=== PATIENT | male | born 1990 | race Caucasian/White ===

== ENCOUNTER 2024-02-09 21:43 | Emergency (ER) | payer OTHER, SELFPAY ==
[2024-02-09 21:53] VITALS: BP 189/127; PULSE 100; TEMP 37.2; O2SAT 98; BMI 35.2
[2024-02-09 22:19] VITALS: BP 152/112
[2024-02-09] MEDS: 0.9 % SODIUM CHLORIDE 1,000 ML 999 ML IV (23:04)
[2024-02-09] MEDS: KETOROLAC TROMETHAMINE 30 MG/ML VIAL IVP (23:05)
[2024-02-09] MEDS: DICYCLOMINE HCL 20 MG/2 ML VIAL IM (23:05)
[2024-02-09] MEDS: ONDANSETRON PF 4 MG/2 ML VIAL IV (23:05)
--- NOTE | 2024-02-09 23:05 | ED.ABDPAIN1 ---
HPI - Abdominal Pain General Chief Complaint: Abdominal Pain Stated Complaint: ABDOMINAL PAIN Time Seen by Provider: 02/09/24 22:04 Source: patient Mode of arrival: walk-in Limitations: no limitations History of Present Illness HPI narrative: 33-year-old male to the emergency department with chief complaint of right lower quadrant abdominal pain. Patient reports his symptoms started over the last day. He has had fever, chills, diarrhea, nausea and vomiting. His had similaar symptoms and was diagnosed with Yersenia enterocolitis. Related Data Home Medications ?Medication ?Instructions ?Recorded ?Confirmed losartan 25 mg tablet mg 02/09/24 metoprolol tartrate 25 mg tablet mg 02/09/24 Previous Rx's ?Medication ?Instructions ?Recorded ciprofloxacin HCl 500 mg tablet 500 mg PO BID 7 days #14 tabs 02/10/24 dicyclomine 10 mg capsule 10 mg PO QID PRN abdominal pain 02/10/24 #12 caps ondansetron 4 mg disintegrating 4 mg PO Q8H PRN nausea and 02/10/24 tablet vomiting 4 days #16 tabs Allergies Allergy/AdvReac Type Severity Reaction Status Date / Time No Known Drug Allergies Allergy Verified 02/09/24 21:55 Review of Systems ROS Status of ROS 10 or more systems reviewed and unremarkable except as noted in history and below Exam Narrative Exam Narrative: VITALS: I have reviewed the triage vital signs. GENERAL: Well developed, well appearing adult in no acute distress. NEURO: Alert and oriented. Moves all extremities. Face is symmetric and expressive. EYES: PERRL. No scleral icterus or conjunctival injection. No discharge. HENT: Normocephalic, atraumatic. Hearing is grossly intact. Nares grossly patent and without discharge. Mucous membranes moist. NECK: No JVD. Patient moves neck without restriction. CARDIO: Rhythm regular. Normal rate. No murmur, rub, or gallop. Pulses equal bilaterally in the upper and lower extremity. No lower extremity edema. PULM: Lungs clear to auscultation in all miranda. No wheezes, rales, or rhonchi. No conversational dyspnea. No splinting, stridor, or accessory muscle use. GI/: Abdomen is soft. Mild right lower quadrant tenderness. Normoactive bowel sounds. EXTREMITIES: Symmetric muscle bulk. No joint swelling. No clubbing, cyanosis, or deformity. SKIN: Warm and dry. Normal turgor. No rash or lesions appreciated. PSYCH: Mood, affect, and interaction is appropriate to the setting. Constitutional Vital Signs, click to edit/add: Last Vital Signs Temp 99.0 F 02/09/24 21:53 Pulse 100 H 02/09/24 21:53 Resp 16 02/09/24 21:53 BP 146/100 H 02/10/24 00:03 Pulse Ox 98 02/09/24 21:53 O2 Del Method Room Air 02/09/24 21:53 Course Vital Signs Vital signs: Vital Signs Temperature 99.0 F 02/09/24 21:53 Pulse Rate 100 H 02/09/24 21:53 Respiratory Rate 16 02/09/24 21:53 Blood Pressure 189/127 H 02/09/24 21:53 Pulse Oximetry 98 02/09/24 21:53 Oxygen Delivery Method Room Air 02/09/24 21:53 Temperature 99.0 F 02/09/24 21:53 Pulse Rate 100 H 02/09/24 21:53 Respiratory Rate 16 02/09/24 21:53 Blood Pressure 146/100 H 02/10/24 00:03 Pulse Oximetry 98 02/09/24 21:53 Oxygen Delivery Method Room Air 02/09/24 21:53 MDM - Abdominal Pain MDM Narrative Medical decision making narrative: 33-year-old male with right lower quadrant pain. Vital stable, the patient is afebrile. Mild tenderness on exam. No peritoneal signs. has illness that can cause pseudoappendicitis, we'll work him up with CT scan and labs however. Pain meds were ordered. Patient agrees with this plan. Lab work is unremarkable. CT scan without acute findings. Patient is reexamined. He remains comfortable. His abdomen remains benign. Vitals remained stable. He is appropriate for discharge home. Given the symptom onset similar to his 's course we'll treat him with Cipro as well. He'll follow up with PCP. Return precautions were discussed. All questions were answered. The patient was discharged home. Medical Records Attestation: I reviewed the patient's medical records. Lab Data Attestation: I reviewed the patient's lab results. Labs: Lab Results 02/09/24 Range/Units 23:00 WBC 9.1 (4.0-11.0) 10^3/uL RBC 5.03 (4.70-6.10) 10^6/uL Hgb 15.9 (14.0-18.0) g/dL Hct 45.2 (42.0-54.0) % MCV 89.9 (80.0-94.0) fL MCH 31.6 (25.9-34.0) pg MCHC 35.2 (29.9-35.2) g/dL RDW 13.6 (11.0-15.0) % Plt Count 182 (150-450) 10^3/uL MPV 10.4 (9.5-13.5) fL Neut % (Auto) 72.0 (43.0-75.0) % Lymph % (Auto) 20.7 (20.5-60.0) % [place] % (Auto) 6.2 (1.7-12.0) % Eos % (Auto) 0.5 L (0.9-7.0) % Baso % (Auto) 0.4 (0.2-2.0) % Neut # (Auto) 6.6 H (1.4-6.5) 10^3/uL Lymph # (Auto) 1.9 (1.2-3.8) 10^3/uL [place] # (Auto) 0.6 (0.3-0.8) 10^3/uL Eos # (Auto) 0.1 (0.0-0.7) 10^3/uL Baso # (Auto) 0.0 (0.0-0.1) 10^3/uL Abs Immat Gran (auto) 0.02 (0.00-0.03) 10^3/uL Imm/Tot Granulo (auto) 0.2 (0.0-0.5) % Sodium 139 (136-145) mmol/L Potassium 3.4 L (3.5-5.1) mmol/L Chloride 101 (98-107) mmol/L Carbon Dioxide 25.0 (21.0-32.0) mmol/L Anion Gap 16.4 BUN 14.0 (7.0-18.0) mg/dL Creatinine 0.97 (0.70-1.30) mg/dL Est GFR ( Amer) >60 (>=60) Est GFR (Non-Af Amer) >60 (>=60) BUN/Creatinine Ratio 14.4 Glucose 106 (74-106) mg/dL Calcium 9.4 (8.5-10.1) mg/dL Total Bilirubin 1.0 (0.2-1.0) mg/dL AST 32 (15-37) U/L ALT 57 (16-63) U/L Alkaline Phosphatase 50 (46-116) U/L Total Protein 8.2 (6.4-8.2) g/dL Albumin 4.1 (3.4-5.0) g/dL Globulin 4.1 g/dL Albumin/Globulin Ratio 1.0 Lipase 29.0 (16.0-77.0) U/L Imaging Data CT scan - abdomen: Radiologist's impression: ITS Impressions Abdomen/Pelvis CT 02/10/24 00:00 IMPRESSION: 1. No acute findings in the abdomen or pelvis. 2. Normal appendix. No specific cause of right lower quadrant pain is seen. 3. Hepatic steatosis. 4. Urachal diverticulum, unchanged. Electronically authenticated by: BONG MOORE Date: 02/10/2024 01:07 Discharge Plan Discharge Stand Alone Forms: Portal Instructions Chief Complaint: Abdominal Pain Clinical Impression: Abdominal pain Patient Disposition: Home, Self-Care Time of Disposition Decision: 01:22 Condition: Good Mode of Transportation: Private Vehicle Prescriptions / Home Meds: New ondansetron 4 mg tablet,disintegrating 4 mg PO Q8H PRN (Reason: nausea and vomiting) 4 Days Qty: 16 0RF dicyclomine 10 mg capsule 10 mg PO QID PRN (Reason: abdominal pain) Qty: 12 0RF ciprofloxacin HCl 500 mg tablet 500 mg PO BID 7 Days Qty: 14 0RF No Action losartan 25 mg tablet metoprolol tartrate 25 mg tablet Print Language: Urdu Instructions: Abdominal Pain (ED) Referrals: Vance Edwards MD [Primary Care Provider] - 1 week
[2024-02-09 23:06] LABS: Basophils Percent Auto 0.4 % (0.2-2.0); Eosinophils Absolute Auto 0.1 10^3/uL (0.0-0.7); Eosinophils Percent Auto 0.5 % (0.9-7.0); Hematocrit 45.2 % (42.0-54.0); Hemoglobin 15.9 g/dL (14.0-18.0); Immature Granulocytes Abs Auto 0.02 10^3/uL (0.00-0.03); Immature Granulocytes Pct Auto 0.2 % (0.0-0.5); Lymphocytes Absolute Auto 1.9 10^3/uL (1.2-3.8); Lymphocytes Percent Auto 20.7 % (20.5-60.0); Mean Corpuscular HGB Conc 35.2 g/dL (29.9-35.2); Mean Corpuscular Hemoglobin 31.6 pg (25.9-34.0); Mean Corpuscular Volume 89.9 fL (80.0-94.0); Mean Platelet Volume 10.4 fL (9.5-13.5); Monocytes Absolute Auto 0.6 10^3/uL (0.3-0.8); Monocytes Percent Auto 6.2 % (1.7-12.0); Neutrophils Absolute Auto 6.6 10^3/uL (1.4-6.5); Platelet Count 182 10^3/uL (150-450); Red Blood Count 5.03 10^6/uL (4.70-6.10); Red Cell Distribution Width 13.6 % (11.0-15.0); White Blood Count 9.1 10^3/uL (4.0-11.0)
[2024-02-09 23:29] LABS: Alanine Aminotransferase 57 U/L (16-63); Albumin Level 4.1 g/dL (3.4-5.0); Alkaline Phosphatase 50 U/L (46-116); Anion Gap 16.4; Aspartate Amino Transferase 32 U/L (15-37); BUN Creatinine Ratio 14.4; Calcium 9.4 mg/dL (8.5-10.1); Chloride 101 mmol/L (98-107); Estimated GFR (African America >60 (>=60); Estimated GFR (Non-African Ame >60 (>=60); Globulin 4.1 g/dL; Glucose 106 mg/dL (74-106); Potassium 3.4 mmol/L (3.5-5.1); Sodium 139 mmol/L (136-145); Total Protein 8.2 g/dL (6.4-8.2)
--- NOTE | 2024-02-10 | CT_ITS ---
The [address] [address] Patient Name: MERCEDES CARRANZA MRN: [id number] date: 1990 Sex: M Assigned Patient Location: ER Current Patient Location: ER Accession/Order Number: [id number] Exam Date: 02/10/2024 00:05 Report Date: 02/10/2024 01:07 At the request of: PERRY MICHAUD Procedure: CT abdomen pelvis w con EXAM: CT abdomen pelvis w con HISTORY: Acute RLQ pain with vomiting. COMPARISON: CT abdomen pelvis, 04/22/2022. TECHNIQUE: IV contrast enhanced CT imaging the abdomen and pelvis was performed using 100 mL of Omnipaque 300 intravenous contrast. Sagittal and coronal reconstructions are provided. Dose reduction techniques were achieved by using automated exposure control and/or adjustment of mA and/or kV according to patient size and/or use of iterative reconstruction technique. FINDINGS: CT ABDOMEN: The lung bases are clear. Imaged heart is unremarkable. There is diffuse hepatic steatosis with mild fatty sparing around the gallbladder. The gallbladder, pancreas, spleen, adrenal glands, kidneys, aorta, IVC, stomach and small bowel appear unremarkable. CT PELVIS: The appendix, pelvic small bowel loops, colon, prostate and urinary bladder are unremarkable. There is a 1.4 cm urachal diverticulum on image 70 of series 6, unchanged. No inflammatory fat stranding, free fluid, loculated fluid or free air is seen in the abdomen or pelvis. No acute osseous abnormality or suspicious bony lesion is seen. CT/CT abdomen pelvis w con IMPRESSION: 1. No acute findings in the abdomen or pelvis. 2. Normal appendix. No specific cause of right lower quadrant pain is seen. 3. Hepatic steatosis. 4. Urachal diverticulum, unchanged. Electronically authenticated by: BONG MOORE Date: 02/10/2024 01:07
[2024-02-10 00:03] VITALS: BP 146/100
[2024-02-10 01:36] VITALS: BP 138/94; PULSE 89; O2SAT 100
== END 2024-02-10 01:45 | disposition home or self-care (01) ==
PROVIDERS: Emergency Provider Student in an Organized Health Care Education/Training Program; PCP Family Medicine
DX: R10.9 Unspecified abdominal pain (principal)
CPT/HCPCS: 36415; 74177; 80053; 83690; 85025; 96361; 96372; 96374; 96375; 99284; J0500; Q9967